=== PATIENT | female | born 1985 | race Caucasian/White ===

== ENCOUNTER 2018-07-01 12:09 | Emergency (ER) | payer OTHER ==
[2018-07-01] MEDS ORDERED: KETOROLAC TROMETHAMINE 60 MG/2 ML SDV IM ONE (13:29)
--- NOTE | 2018-07-01 13:30 | ER Document Report ---
ED Medical Screen (RME) - General Chief Complaint: Breast Problem Stated Complaint: POST OP COMPLICATIONS Time Seen by Provider: 07/01/18 13:27 Mode of Arrival: Ambulatory Information source: Patient Notes: 32 years old female who had a bilateral mastectomy done 4 weeks ago, presents today with left breast pain slight swelling and drainage. No fever chills or other constitutional symptoms. On examination of the left breast-on the lateral margin of the suture line oozing serosanguineous fluid TRAVEL OUTSIDE OF THE [place] IN LAST 30 DAYS: No - Related Data Allergies/Adverse Reactions: codeine Allergy (Verified 07/01/18 12:12) guaifenesin [From Quibron] Allergy (Verified 07/01/18 12:12) prednisone Allergy (Verified 07/01/18 12:12) theophylline [From Quibron] Allergy (Verified 07/01/18 12:12) Physical Exam - Vital signs Vitals: Temp Pulse Resp BP Pulse Ox 98.1 F 96 16 94/65 L 98 07/01/18 12:15 07/01/18 12:15 07/01/18 12:15 07/01/18 12:15 07/01/18 12:15 Course - Vital Signs Vital signs: Temp Pulse Resp BP Pulse Ox 98.1 F 96 16 94/65 L 98 07/01/18 12:15 07/01/18 12:15 07/01/18 12:15 07/01/18 12:15 07/01/18 12:15
[2018-07-01 14:09] LABS: ABSOLUTE BASOPHILS # (AUTO) 0.1 10^3/uL (0.0-0.2); ABSOLUTE EOSINOPHILS # (AUTO) 0.3 10^3/uL (0.0-0.6); ABSOLUTE MONOCYTES (AUTO) 0.9 10^3/uL (0.1-1.4); ABSOLUTE NEUT (AUTO) 9.8 10^3/uL (1.7-8.2); BASOPHILS % (AUTO) 0.5 % (0-2); EOSINOPHILS % (AUTO) 2.5 % (0-6); HEMATOCRIT 42.9 % (36.0-47.0); HEMOGLOBIN 14.6 g/dL (12.0-15.5); LYMPHOCYTES % (AUTO) 15.4 % (13-45); MEAN CORPUSCULAR HEMOGLOBIN 29.2 pg (27.0-33.4); MEAN CORPUSCULAR HGB CONC 34.1 g/dL (32.0-36.0); MEAN CORPUSCULAR VOLUME 86 fl (80-97); MONOCYTES % (AUTO) 6.6 % (3-13); PLATELET COUNT 265 10^3/uL (150-450); RED BLOOD COUNT 5.01 10^6/uL (3.72-5.28); RED CELL DISTRIBUTION WIDTH 13.5 % (11.5-14.0); TOTAL CELLS COUNTED % (AUTO) 100 %; WHITE BLOOD COUNT 13.1 10^3/uL (4.0-10.5)
[2018-07-01] MEDS ORDERED: ONDANSETRON 4 MG TAB.RAPDIS PO ONE (14:59)
[2018-07-01] MEDS ORDERED: FENTANYL CITRATE INJ/PF 100 MCG/2 ML AMPUL IV ONE ×2 (14:59→20:46)
--- NOTE | 2018-07-01 15:01 | ER Document Report ---
ED General - General Chief Complaint: Breast Problem Stated Complaint: POST OP COMPLICATIONS Time Seen by Provider: 07/01/18 13:27 Mode of Arrival: Ambulatory Information source: Patient, H Records, Outside Facility Records Notes: 32-year-old female with type 2 diabetes, hyperlipidemia presents with complaint of left breast pain and purulent discharge. Patient had a bilateral mastectomy on May 05, 2018 secondary to being BRAT 2 positive. She states that her left breast required debridement which was done on 06/05/2018. Patient was on Cipro for 14 days after the debridement and her last dose was 9 days ago. Patient states that 4 days prior to arrival she noticed that the scab of her left breast had "changed in color, and became gooey". She states that 3 days ago she started to experience purulent drainage from the left breast. Patient's plastic surgeon is Dr. Desir from [place]. TRAVEL OUTSIDE OF THE [place] IN LAST 30 DAYS: No - HPI Onset: Other - 4 days prior to arrival Quality of pain: Achy Severity: Moderate Associated symptoms: Fever, Nausea Exacerbated by: Denies Relieved by: Denies Similar symptoms previously: No Recently seen / treated by doctor: Yes - Related Data Allergies/Adverse Reactions: codeine Allergy (Verified 07/01/18 12:12) guaifenesin [From Quibron] Allergy (Verified 07/01/18 12:12) prednisone Allergy (Verified 07/01/18 12:12) theophylline [From Quibron] Allergy (Verified 07/01/18 12:12) vancomycin Allergy (Verified 07/01/18 21:20) Past Medical History - General Information source: Patient - Social History Smoking Status: Never Smoker Chew tobacco use (# tins/day): No Frequency of alcohol use: None Drug Abuse: None Lives with: Spouse/Significant other Family History: Reviewed & Not Pertinent Patient has suicidal ideation: No Patient has homicidal ideation: No - Past Medical History Cardiac Medical History: Reports: Hx Hypercholesterolemia Endocrine Medical History: Reports: Hx Diabetes Mellitus Type 2 Renal/ Medical History: Denies: Hx Peritoneal Dialysis Review of Systems - Review of Systems Constitutional: Fever EENT: denies: Blurred vision Cardiovascular: Other - Left breast pain. denies: Chest pain Respiratory: denies: Short of breath Gastrointestinal: Nausea Genitourinary: denies: Dysuria, Flank pain Female Genitourinary: No symptoms reported Musculoskeletal: No symptoms reported Skin: Other - Left breast surgical incision with mild dehiscence and purulent drainage Neurological/Psychological: Headaches -: Yes All other systems reviewed and negative Physical Exam - Vital signs Vitals: Temp Pulse Resp BP Pulse Ox 98.1 F 96 16 94/65 L 98 07/01/18 12:15 07/01/18 12:15 07/01/18 12:15 07/01/18 12:15 07/01/18 12:15 - Notes Notes: PHYSICAL EXAMINATION: GENERAL: Well-appearing, well-nourished and in no acute distress. HEAD: Atraumatic, normocephalic. EYES: Pupils equal round and reactive to light, extraocular movements intact, conjunctiva are normal. ENT: Nares patent, oropharynx clear without exudates. Moist mucous membranes. NECK: Normal range of motion, supple without lymphadenopathy LUNGS: Breath sounds clear to auscultation bilaterally and equal. No wheezes rales or rhonchi. Small dehiscence of the surgical scar on the left breast with purulent drainage. Left breast tender to palpation, mild erythema. HEART: Regular rate and rhythm without murmurs ABDOMEN: Soft, nontender, nondistended abdomen. No guarding, no rebound. No masses appreciated. Female : deferred Musculoskeletal: Normal range of motion, no pitting or edema. No cyanosis. NEUROLOGICAL: Cranial nerves grossly intact. Normal speech, normal gait. Normal sensory, motor exams PSYCH: Normal mood, normal affect. SKIN: Warm, Dry, normal turgor, no rashes or lesions noted. Course - Re-evaluation Re-evalutation: Laboratory 07/01/18 07/01/18 13:52 13:52 WBC 13.1 H RBC 5.01 Hgb 14.6 Hct 42.9 MCV 86 MCH 29.2 MCHC 34.1 RDW 13.5 Plt Count 265 Seg Neutrophils % 75.0 Lymphocytes % 15.4 Monocytes % 6.6 Eosinophils % 2.5 Basophils % 0.5 Absolute Neutrophils 9.8 H Absolute Lymphocytes 2.0 Absolute Monocytes 0.9 Absolute Eosinophils 0.3 Absolute Basophils 0.1 Sodium 139.3 Potassium 4.5 Chloride 104 Carbon Dioxide 23 Anion Gap 12 BUN 6 L Creatinine 0.51 L Est GFR ( Amer) > 60 Est GFR (Non-Af Amer) > 60 Glucose 96 Calcium 10.1 07/01/18 15:54 [facility] contacted for possible transfer to patient's plastic surgeon. 07/01/18 16:38 I did speak to the plastic surgeon who is covering for Dr. Desir at [facility]. She does want the patient transferred back to the facility as soon as possible. She would like cefepime added to the vancomycin. She did ask if our surgery team could look at the patient's breast and possibly extend the incision. I did talk to surgery on-call who states that they are unable to do so. 32-year-old female with type 2 diabetes, hyperlipidemia presents with complaint of left breast pain and purulent discharge. Patient had a bilateral mastectomy on May 05, 2018 secondary to being BRAT 2 positive. She states that her left breast required debridement which was done on 06/05/2018. Patient was on Cipro for 14 days after the debridement and her last dose was 9 days ago. Patient states that 4 days prior to arrival she noticed that the scab of her left breast had "changed in color, and became gooey". She states that 3 days ago she started to experience purulent drainage from the left breast. Patient's plastic surgeon is Dr. Desir from [place]. Upon arrival patient is initially tachycardic. This has resolved. Exam significant for dehiscence of the surgical scar in the left breast with associated purulent drainage and tenderness. Patient was administered vancomycin but had a reaction to it and this was stopped and Benadryl was administered. Cefepime also administered. Patient has been admitted for transfer to [facility] by Dr Fuentes. 07/01/18 20:19 07/01/18 20:19 07/01/18 23:58 Patient reevaluated multiple times. She remained stable throughout her ED course. She is stable for transfer. - Vital Signs Vital signs: Temp Pulse Resp BP Pulse Ox 98.1 F 98 20 112/62 100 07/01/18 20:50 07/01/18 20:50 07/01/18 20:50 07/01/18 20:50 07/01/18 20:50 - Laboratory Result Diagrams: 07/01/18 13:52 07/01/18 13:52 Laboratory results interpreted by me: 07/01/18 07/01/18 13:52 13:52 WBC 13.1 H Absolute Neutrophils 9.8 H BUN 6 L Creatinine 0.51 L - Diagnostic Test Radiology reviewed: Image reviewed Discharge - Discharge Clinical Impression: Infection of left breast, Breast pain, Tachycardia Leukocytosis Qualifiers: Leukocytosis type: unspecified Qualified Code(s): D72.829 - Elevated white blood cell count, unspecified Condition: Good Disposition: [place]
[2018-07-01] MEDS ORDERED: VANCOMYCIN HCL INJ 1000 MG VIAL IV ONE (15:10)
[2018-07-01] MEDS ORDERED: CEFEPIME 2 GM/D5W RTU 2 GM/50 ML RTUPB IV ONE (16:39)
[2018-07-01 16:45] LABS: ANION GAP 12 (5-19); BLOOD UREA NITROGEN 6 mg/dL (7-20); CALCIUM 10.1 mg/dL (8.4-10.2); CARBON DIOXIDE 23 mmol/L (22-30); CHLORIDE 104 mmol/L (98-107); GLUCOSE 96 mg/dL (75-110); POTASSIUM 4.5 mmol/L (3.6-5.0); SODIUM 139.3 mmol/L (137-145)
[2018-07-01] MEDS ORDERED: DIPHENHYDRAMINE HCL 50 MG/ML VIAL IV ONE (18:03)
[2018-07-01] MEDS ORDERED: ONDANSETRON HCL INJ/PF 4 MG/2 ML SDV IV ONE (21:09)
[2018-07-02 06:36] VITALS: BP 110/55
[2018-07-02] MEDS ORDERED: CEFEPIME 1 GM/D5W RTU 1 GM/50 ML RTUPB IV SCH (10:00)
--- NOTE | 2018-07-07 11:56 | RADIOLOGY REPORT (SQ) ---
EXAM DESCRIPTION: U/S BREAST UNILATERAL LIMITED COMPLETED DATE/TIME: 07/01/2018 5:27 pm REASON FOR STUDY: Postsurgical left breast abscess COMPARISON: None. TECHNIQUE: Static and Realtime grayscale interrogation of focal area of concern, left lateral breast 9 o'clock position acquired. Selected color doppler/spectral images saved to PACS. ELASTOGRAPHY PERFORMED: No. LIMITATIONS: None. FINDINGS: Patient has a tiny incision along the left lateral breast 3 o'clock position. A tiny hypo echoic area of granulation tissue or scar is present 6 x 4 mm in size. No abscess. Surgical changes involve the skin and subcutaneous fat, superficial to a left breast implant. There is no fluid bing ection between the skin incision and the implant. IMPRESSION: No suspicious findings detected by ultrasound. BIRAD: 2 Benign findings. RECOMMENDATION: RECOMMENDED FOLLOW-UP: Follow-up as clinically indicated. COMMENT: PATIENT NOTIFIED BY LETTER. [place], [place] [employer], and [place] [employer] recommend an annual screening mammogram for women aged 40 years or over. Each patient will recei ve a reminder prior to the anniversary date of her mammogram. The [place] [employer] ([employer]) has developed recommendations for screening MRI of the breast s in certain patient populations, to be used in conjunction with mammography. Breast MRI surveillanc e may be appropriate for women with more than 20% lifetime risk of developing breast cancer as deter mined by genetic testing, significant family history of the disease, or history of mantle radiation f or Hodgkins Disease. ACR Practice Guidelines 2008. TECHNICAL DOCUMENTATION: FINDING NUMBER: (1) ASSESSMENT: (1) JOB ID: [id number] [employer]- All Rights Reserved Reading location - IP/workstation name: [email or web address]
== END 2018-07-01 21:20 | disposition short-term general hospital (02) ==
LOC: ER 12:09
DX: N61.0 Mastitis without abscess (principal); N64.4 Mastodynia; N64.52 Nipple discharge; R00.0 Tachycardia, unspecified; D72.829 Elevated white blood cell count, unspecified; Z90.13 Acquired absence of bilateral breasts and nipples
CPT/HCPCS: 99285; 96372; 96375; 96365; 96368; 36415; 85025; 80048; 76642; J1200; J1885; S0119; J3010; J2405; J3370; J0692